=== PATIENT | female | born 1965 | race American Indian/Alaskan Native ===

== ENCOUNTER 2019-07-06 09:34 | Outpatient (CLI) | payer OTHER ==
[2019-07-06 10:30] LABS: Hematocrit 36.2 % (30.3-42.9); Hemoglobin 11.3 gm/dl (10.1-14.3); Mean Corpuscular HGB Conc 31 % (30-34); Platelet Count 209 K/mm3 (140-440); Red Blood Count 5.74 M/mm3 (3.65-5.03); Red Cell Distribution Width 16.9 % (13.2-15.2)
[2019-07-06 10:41] LABS: Mean Corpuscular Volume 63 fl (79-97)
[2019-07-06 11:02] LABS: Alanine Aminotransferase 15 units/L (7-56); Albumin 4.3 g/dL (3.9-5); BUN/Creatinine Ratio 18; Blood Urea Nitrogen 18 mg/dL (7-17); Calcium 9.9 mg/dL (8.4-10.2); Hemolysis Index 1; LDL Cholesterol,Direct 100 mg/dL (50-130)
[2019-07-06 11:12] LABS: Chol/HDL Ratio 2.74 %; HDL Cholesterol 55 mg/dL (40-59)
--- NOTE | 2019-07-06 11:25 | XRay Report ---
CHEST 2 VIEWS INDICATION: Chemical exposure. COMPARISON: FINDINGS: Support devices: None. Heart: Within normal limits. Lungs/pleura: No acute air space or interstitial disease. No pneumothorax. Additional findings: None. IMPRESSION: Normal chest x-ray. Signer Name: Nilo Alvarez Jr, MD Signed: 07/06/2019 11:21 AM Workstation Name: [id number]
--- NOTE | 2019-07-10 02:15 | Pulmonary Function Test ---
SPIROMETRY: FVC 3.55 liters, which is 86% of the predicted. FEV1 is 2.90, which is 88% of predicted. FEV1/FVC ratio is 82. FLOW VOLUME LOOP: FEF 25-75% is 3.3 liters per second, which is 95% of the predicted and MVV is 97% of the predicted. LUNG VOLUMES: TLC 5.83, which is 87% of predicted and RV 2.34, which is 98% of predicted and ERV is 0.65, 38% of predicted. DLCO is reduced 51% of the predicted. IMPRESSION: Normal pulmonary function except some slight decrease in DLCO. The patient's arterial blood gases; pH 7.4, pCO2 of 43, pO2 of 80 and bicarbonate is 27 and O2 saturation 96 on room air. JOB# [id number] AMENA/COMPA
== END 2019-07-06 09:35 | disposition home or self-care (01) ==
LOC: PF 09:34
PROVIDERS: ATTEND Internal Medicine
DX: Z57.5 Occupational exposure to toxic agents in other industries (principal); D64.9 Anemia, unspecified; R79.89 Other specified abnormal findings of blood chemistry
CPT/HCPCS: 36415; 71046; 80053; 80061; 82785; 82803; 84436; 84443; 85027; 94010; 94726; 94729